=== PATIENT | female | born 1985 | race Caucasian/White ===

== ENCOUNTER 2018-06-25 16:01 | Emergency (ER) | payer SELFPAY ==
--- NOTE | 2018-06-25 16:11 | ER Report ---
History and Physical Time Seen By MD: 16:10 HPI/ROS CHIEF COMPLAINT: Needs bipolar meds adjusted HISTORY OF PRESENT ILLNESS: 33-year-old female patient presents to emergency room with complaint of needing to have her bipolar meds adjusted. Patient states she was at [facility] today and became very irate. She states police were called and they did bring her to the emergency room. Patient states she feels better now, however she feels she is very shaky and feels like she needs to have her medications adjusted. Patient states that she has been having problems with bipolar for years. She states that she has often had blood work done as well as urinalysis done to have this evaluated. Patient states that she feels like she needs to be admitted. She states she was traveling with family, but her family has continued on without her. Patient denies any suicidal ideation. REVIEW OF SYSTEMS: Respiratory: No cough, no dyspnea. Cardiovascular: No chest pain, no palpitations. Gastrointestinal: No vomiting, no abdominal pain. Musculoskeletal: No back pain. Allergies: Coded Allergies: UNABLE TO OBTAIN (Unverified , 06/25/18) Home Meds Reported Medications Topiramate (TOPIRAMATE) 100 Mg Tablet, 100 MG PO BID 06/25/18 Olanzapine (ZYPREXA) 20 Mg Tablet, 20 MG PO QDAY 06/25/18 Lamotrigine (LAMOTRIGINE) 100 Mg Tablet, 100 MG PO BID 06/25/18 Past Medical/Surgical History Patient has a past medical history of bipolar. Patient denies any surgical history. Reviewed Nurses Notes: Yes Constitutional Vital Sign - Last 24 Hours 06/25/18 06/25/18 06/25/18 06/25/18 16:07 16:15 16:45 17:00 Temp 98.7 Pulse 137 131 117 122 Resp 18 13 23 15 B/P (MAP) 149/90 142/90 (107) Pulse Ox 92 93 O2 Delivery Room Air 06/25/18 06/25/18 06/25/18 06/25/18 17:15 17:45 17:54 18:00 Pulse 120 130 114 Resp 17 22 12 B/P (MAP) 137/91 (106) 120/92 (101) Pulse Ox 93 06/25/18 06/25/18 06/25/18 06/25/18 18:15 18:30 18:45 19:00 Pulse 114 105 105 106 Resp 22 18 12 9 B/P (MAP) 133/86 (102) 138/96 (110) Pulse Ox 92 06/25/18 06/25/18 19:05 19:20 Pulse 112 102 Resp 14 11 Pulse Ox 93 Physical Exam General Appearance: The patient is alert, has no immediate need for airway protection and no current signs of toxicity. Respiratory: Chest is non tender, lungs are clear to auscultation. Cardiac: regular rate and rhythm Gastrointestinal: Abdomen is soft and non tender, no masses, bowel sounds normal . Musculoskeletal: Neck: Neck is supple and non tender. Extremities have full range of motion and are non tender. Skin: No rashes or lesions. Psych: Patient does have pressured speech, she has flight of ideas, she is difficult time maintaining her train of thought. DIFFERENTIAL DIAGNOSIS: After history and physical exam differential diagnosis was considered for bipolar, manic episode. Medical Decision Making Data Points Result Diagram: 06/25/18 1648 06/25/18 1637 Laboratory Hematology Test 06/25/18 08:21 06/25/18 16:37 06/25/18 16:48 Urine Color Yellow Urine Clarity Slightly-cloudy Urine pH 5.0 pH (4.8-9.5) Urine Specific [place] 1.017 Urine Protein Negative mg/dL (NEGATIVE) Urine Glucose (UA) Negative mg/dL (NEGATIVE) Urine Ketones Negative mg/dL (NEGATIVE) Urine Blood Negative (NEGATIVE) Urine Nitrite Negative (NEGATIVE) Urine Bilirubin Negative (NEGATIVE) Urine Urobilinogen 2.0 mg/dL (0.2-1.9) Urine Leukocyte Esterase Negative (NEGATIVE) Urine RBC None /HPF (0-2/HPF) Urine WBC 2 /HPF (0-5/HPF) Urine Squamous Epithelial Cells Many /LPF (</=FEW) Urine Bacteria Negative /HPF (NONE-FEW) Urine Hyaline Casts Few /LPF (NONE-FEW) Urine Mucus Few /HPF (NONE-FEW) Urine HCG, Qualitative Negative (NEGATIVE) Sodium Level 140 mmol/L (137-145) Potassium Level 3.6 mmol/L (3.5-5.0) Chloride Level 99 mmol/L (98-107) Carbon Dioxide Level 27 mmol/L (22-31) Blood Urea Nitrogen 4 mg/dl (7-18) Creatinine 0.80 mg/dl (0.52-1.04) Glomerular Filtration Rate Calc > 60.0 Random Glucose 121 mg/dl (75-110) Calcium Level 9.5 mg/dl (8.4-10.2) Magnesium Level 1.7 mg/dl (1.7-2.2) Total Bilirubin 0.4 mg/dl (0.2-1.3) Aspartate Amino Transf (AST/SGOT) 26 U/L (0-35) Alanine Aminotransferase (ALT/SGPT) 55 U/L (0-56) Alkaline Phosphatase 31 U/L (0-126) Total Protein 7.7 g/dl (6.3-8.2) Albumin 4.2 g/dl (3.5-5.0) Salicylates Level < 10 mg/L Salicylate Last Dose Date unk Urine Opiates Screen Negative Acetaminophen Level < 10 ug/ml Urine Barbiturates Screen Negative Ur Tricyclic Antidepressants Screen Negative Urine Phencyclidine Screen Negative Urine Amphetamines Screen Negative Urine Benzodiazepines Screen Negative Urine Cocaine Screen Negative Urine Cannabinoids Screen Negative Serum Alcohol < 10 mg/dl Red Blood Count 4.75 M/uL (4.17-5.56) Mean Corpuscular Volume 88.9 fL (80.0-96.0) Mean Corpuscular Hemoglobin 30.3 pg (26.0-33.0) Mean Corpuscular Hemoglobin Concent 34.1 g/dL (32.0-36.0) Red Cell Distribution Width 12.6 % (11.5-14.5) Mean Platelet Volume 7.2 fL (7.2-11.1) Neutrophils (%) (Auto) 82.5 % (39.4-72.5) Lymphocytes (%) (Auto) 13.0 % (17.6-49.6) Monocytes (%) (Auto) 3.5 % (4.1-12.4) Eosinophils (%) (Auto) 0.7 % (0.4-6.7) Basophils (%) (Auto) 0.3 % (0.3-1.4) Nucleated RBC Relative Count (auto) 0.0 /100WBC Neutrophils # (Auto) 6.9 K/uL (2.0-7.4) Lymphocytes # (Auto) 1.1 K/uL (1.3-3.6) Monocytes # (Auto) 0.3 K/uL (0.3-1.0) Eosinophils # (Auto) 0.1 K/uL (0.0-0.5) Basophils # (Auto) 0.0 K/uL (0.0-0.1) Nucleated RBC Absolute Count (auto) 0.00 K/uL Chemistry Test 06/25/18 08:21 06/25/18 16:37 06/25/18 16:48 Urine Color Yellow Urine Clarity Slightly-cloudy Urine pH 5.0 pH (4.8-9.5) Urine Specific [place] 1.017 Urine Protein Negative mg/dL (NEGATIVE) Urine Glucose (UA) Negative mg/dL (NEGATIVE) Urine Ketones Negative mg/dL (NEGATIVE) Urine Blood Negative (NEGATIVE) Urine Nitrite Negative (NEGATIVE) Urine Bilirubin Negative (NEGATIVE) Urine Urobilinogen 2.0 mg/dL (0.2-1.9) Urine Leukocyte Esterase Negative (NEGATIVE) Urine RBC None /HPF (0-2/HPF) Urine WBC 2 /HPF (0-5/HPF) Urine Squamous Epithelial Cells Many /LPF (</=FEW) Urine Bacteria Negative /HPF (NONE-FEW) Urine Hyaline Casts Few /LPF (NONE-FEW) Urine Mucus Few /HPF (NONE-FEW) Urine HCG, Qualitative Negative (NEGATIVE) Glomerular Filtration Rate Calc > 60.0 Calcium Level 9.5 mg/dl (8.4-10.2) Magnesium Level 1.7 mg/dl (1.7-2.2) Total Bilirubin 0.4 mg/dl (0.2-1.3) Aspartate Amino Transf (AST/SGOT) 26 U/L (0-35) Alanine Aminotransferase (ALT/SGPT) 55 U/L (0-56) Alkaline Phosphatase 31 U/L (0-126) Total Protein 7.7 g/dl (6.3-8.2) Albumin 4.2 g/dl (3.5-5.0) Salicylates Level < 10 mg/L Salicylate Last Dose Date unk Urine Opiates Screen Negative Acetaminophen Level < 10 ug/ml Urine Barbiturates Screen Negative Ur Tricyclic Antidepressants Screen Negative Urine Phencyclidine Screen Negative Urine Amphetamines Screen Negative Urine Benzodiazepines Screen Negative Urine Cocaine Screen Negative Urine Cannabinoids Screen Negative Serum Alcohol < 10 mg/dl White Blood Count 8.3 k/uL (4.5-11.0) Red Blood Count 4.75 M/uL (4.17-5.56) Hemoglobin 14.4 g/dL (12.0-16.0) Hematocrit 42.2 % (34.0-47.0) Mean Corpuscular Volume 88.9 fL (80.0-96.0) Mean Corpuscular Hemoglobin 30.3 pg (26.0-33.0) Mean Corpuscular Hemoglobin Concent 34.1 g/dL (32.0-36.0) Red Cell Distribution Width 12.6 % (11.5-14.5) Platelet Count 412 K/uL (150-450) Mean Platelet Volume 7.2 fL (7.2-11.1) Neutrophils (%) (Auto) 82.5 % (39.4-72.5) Lymphocytes (%) (Auto) 13.0 % (17.6-49.6) Monocytes (%) (Auto) 3.5 % (4.1-12.4) Eosinophils (%) (Auto) 0.7 % (0.4-6.7) Basophils (%) (Auto) 0.3 % (0.3-1.4) Nucleated RBC Relative Count (auto) 0.0 /100WBC Neutrophils # (Auto) 6.9 K/uL (2.0-7.4) Lymphocytes # (Auto) 1.1 K/uL (1.3-3.6) Monocytes # (Auto) 0.3 K/uL (0.3-1.0) Eosinophils # (Auto) 0.1 K/uL (0.0-0.5) Basophils # (Auto) 0.0 K/uL (0.0-0.1) Nucleated RBC Absolute Count (auto) 0.00 K/uL Toxicology Test 06/25/18 16:37 Salicylates Level < 10 mg/L Salicylate Last Dose Date unk Urine Opiates Screen Negative Acetaminophen Level < 10 ug/ml Urine Barbiturates Screen Negative Ur Tricyclic Antidepressants Screen Negative Urine Phencyclidine Screen Negative Urine Amphetamines Screen Negative Urine Benzodiazepines Screen Negative Urine Cocaine Screen Negative Urine Cannabinoids Screen Negative Serum Alcohol < 10 mg/dl Urinalysis Test 06/25/18 16:37 Urine Color Yellow Urine Clarity Slightly-cloudy Urine pH 5.0 pH (4.8-9.5) Urine Specific [place] 1.017 Urine Protein Negative mg/dL (NEGATIVE) Urine Glucose (UA) Negative mg/dL (NEGATIVE) Urine Ketones Negative mg/dL (NEGATIVE) Urine Blood Negative (NEGATIVE) Urine Nitrite Negative (NEGATIVE) Urine Bilirubin Negative (NEGATIVE) Urine Urobilinogen 2.0 mg/dL (0.2-1.9) Urine Leukocyte Esterase Negative (NEGATIVE) Urine RBC None /HPF (0-2/HPF) Urine WBC 2 /HPF (0-5/HPF) Urine Squamous Epithelial Cells Many /LPF (</=FEW) Urine Bacteria Negative /HPF (NONE-FEW) Urine Hyaline Casts Few /LPF (NONE-FEW) Urine Mucus Few /HPF (NONE-FEW) Urine HCG, Qualitative Negative (NEGATIVE) ED Course/Re-evaluation ED Course Patient was admitted to exam room, history and physical were obtained. Dif ferential diagnoses were considered. On examination patient was very manic, she is hard time completing sentences. She was talking very quickly with pressured speech. She is also very shaky. Heart was tachycardia, lungs were clear, abdomen soft nontender. Lab work for a behavioral health admission were done. The labs were unremarkable. Patient was requesting admission to get her medications stabilized. I did discuss this with Birdie Anthony, nurse practitioner, who said that the unit here was full was not able to care for the patient. We then called up to [facility] and sent them the note as well as the lab work. Reviewed that and requested a psych eval. We received a call at approximately [phone] stating that they would be able to accept the patient. Patient will be transferred to the [facility] for treatment and evaluation. I discussed with the patient who verbalized understanding and agreement with plan. Decision to Disposition Date: Jun 25, 2018 Decision to Disposition Time: 19:08 Depart Departure Latest Vital Signs Vital Signs Date Time Temp Pulse Resp B/P (MAP) Pulse Ox O2 Delivery O2 Flow Rate FiO2 06/25/18 19:20 102 11 93 06/25/18 19:00 138/96 (110) 06/25/18 16:07 98.7 Room Air Impression: Primary Impression: [place] Additional Impression: Bipolar 1 disorder, manic, moderate Condition: Condition Unchanged Disposition: [facility] Problem Qualifiers JAMISON VALERA Jun 25, 2018 16:11
[2018-06-25] MEDS ORDERED: LAMO100T52 PO (16:19)
[2018-06-25] MEDS ORDERED: TOPI-28 PO (16:19)
[2018-06-25] MEDS ORDERED: OLAN20TA18 PO (16:19)
[2018-06-25 16:54] LABS: PLATELET COUNT, AUTOMATED 412 K/uL (150-450)
[2018-06-25 19:00] VITALS: BP 138/96
== END 2018-06-25 19:35 | disposition short-term general hospital (02) ==
LOC: ER 16:09
DX: F31.9 Bipolar disorder, unspecified (principal)
CPT/HCPCS: 36415; 80305; 80320; 80329; 81001; 81025; 82040; 82247; 82310; 82374; 82435; 82565; 82947; 83735; 84075; 84132; 84155; 84295; 84443; 84450; 84460; 84520; 85025; 99285

== ENCOUNTER → 2018-06-25 | Outpatient (CLI) | payer SELFPAY ==
[~2018-06-25] MED LIST: LAMO100T52 PO; OLAN20TA18 PO; TOPI-28 PO
== END ==
LOC: AMB 19:26
PROVIDERS: ATTEND Nurse Practitioner
DX: R44.0 Auditory hallucinations (principal)
CPT/HCPCS: A0425; A0428